=== PATIENT | female | born 1985 | race African-American/Black ===

== ENCOUNTER 2022-07-21 04:25 | Emergency (ER) | payer SELFPAY ==
[~2022-07-21] VITALS: Ht 167.6 cm; Wt 127.0 kg
--- NOTE | 2022-07-21 04:30 | NUR ---
DR: KIT AT B/S EXAMINED PATIENT .
--- NOTE | 2022-07-21 04:40 | NUR ---
DR:KIT AT B/S EXAMINED PATIENT AND EXPLAINED PLAN OF TX.
[2022-07-21] MEDS ORDERED: IPRATROPIUM BROMIDE 0.5 MG/2.5 ML NEBU ONE (04:56)
[2022-07-21] MEDS ORDERED: ALBUTEROL SULFATE 2.5 MG/3 ML NEBU ONE (04:56)
[2022-07-21] MEDS ORDERED: predniSONE 50 MG TABLET ONE (04:57)
[2022-07-21] MEDS ORDERED: predniSONE 10 MG TABLET ONE (04:57)
[2022-07-21] MEDS ORDERED: IPRATROPIUM BROMIDE 0.5 MG/2.5 ML NEBU NEB ONE (05:00)
[2022-07-21] MEDS ORDERED: ALBUTEROL SULFATE 2.5 MG/3 ML NEBU NEB ONE (05:00)
[2022-07-21] MEDS ORDERED: predniSONE 10 MG TABLET PO ONE (05:00)
[2022-07-21] MEDS ORDERED: ONDANSETRON ODT 4 MG TAB.RAPDIS SL ONE (05:15)
[2022-07-21] MEDS ORDERED: ALBU0.63 IH (05:22)
[2022-07-21] MEDS ORDERED: PRED20TA PO (05:22)
[2022-07-21] MEDS ORDERED: ALBU8.5H8 IH (05:22)
--- NOTE | 2022-07-21 05:30 | NUR ---
OTIS AT B/S DISCUSSED DISCHARGE INSTRUCTION .
[2022-07-21] MEDS ORDERED: ONDANSETRON ODT 4 MG TAB.RAPDIS ONE (05:33)
[2022-07-21 06:07] VITALS: BP 110/66
== END 2022-07-21 06:00 | disposition home or self-care (01) ==
LOC: ER 04:25
DX: J45.909 Unspecified asthma, uncomplicated (principal); Z20.822 Contact with and (suspected) exposure to COVID-19
CPT/HCPCS: 99283; 87426; 94640; J7512 ×2; A4663; J3590; Q0162

== ENCOUNTER 2024-04-11 00:29 | Inpatient (IN) | payer BC, OTHER ==
[2024-04-11] VITALS (25 sets, daily range): BP systolic 121–155; BP diastolic 74–104; TEMP 98.1–99.1; O2SAT 90–99
[~2024-04-11] VITALS: Ht 177.8 cm; Wt 131.5 kg
[~2024-04-11 00:29] MED LIST: ALBU0.63 IH; ALBU6.7H9 INH; ALBU8.5H8 IH; FLUT12AE5 INH; PRED20TA PO; PRED50TA PO; albuterol solution NEB
[2024-04-11] MEDS: IPRATROPIUM BROMIDE 0.5 MG/2.5 ML NEBU NEB ONE (01:02)
[2024-04-11] MEDS: ALBUTEROL SULFATE 2.5 MG/3 ML NEBU NEB ONE ×2 (01:02→03:54)
[2024-04-11] MEDS ORDERED: IPRATROPIUM BROMIDE 0.5 MG/2.5 ML NEBU ONE ×2 (01:05→01:46)
[2024-04-11] MEDS ORDERED: ALBUTEROL SULFATE 2.5 MG/3 ML NEBU ONE ×3 (01:05→04:01)
[2024-04-11] MEDS ORDERED: methylPREDNISolone SOD SUCC 125 MG/2 ML VIAL ONE (02:17)
[2024-04-11] MEDS: methylPREDNISolone SOD SUCC 125 MG/2 ML VIAL IV ONE (02:18)
[2024-04-11 02:27] LABS: BASOPHILS # (AUTO) 0.1 K/UL (0.0-0.2); BASOPHILS % (AUTO) 0.4 % (0.0-2.0); EOSINOPHILS % (AUTO) 0.1 % (0.0-7.0); HEMATOCRIT 34.8 % (31.2-41.9); HEMOGLOBIN 11.3 g/dL (10.9-14.3); LYMPHOCYTES # (AUTO) 0.5 K/uL (0.8-4.8); LYMPHOCYTES % (AUTO) 3.2 % (20.5-51.5); MEAN CORPUSCULAR HEMOGLOBIN 27.1 uug (24.7-32.8); MEAN CORPUSCULAR HGB CONC 33 g/dL (32.3-35.6); MEAN CORPUSCULAR VOLUME 83.5 fL (75.5-95.3); MONOCYTES # (AUTO) 0.6 K/uL (0.1-1.30); MONOCYTES % (AUTO) 3.2 % (0.0-11.0); NEUTROPHILS % (AUTO) 93.1 % (38.5-71.5); PLATELET COUNT (AUTO) 270 K/uL (179-408); RED BLOOD CELL COUNT(AUTO) 4.17 MIL/uL (3.63-4.92); RED CELL DISTRIBUTION WIDTH 15.9 % (12.3-17.7); WHITE BLOOD COUNT (AUTO) 17.2 K/uL (3.8-11.8)
[2024-04-11 02:33] LABS: DIFFERENTIAL COMMENT 1
[2024-04-11 02:42] LABS: CREATININE 0.9 mg/dL (0.6-1.3); POTASSIUM 3.9 mmol/L (3.5-5.1)
[2024-04-11 05:32] LABS: ABG BASE EXCESS -11.4 mmol/L (-2.0-3.0); ABG HCO3 11.3 mmol/L (21.0-28.0); ABG PH 7.392 (7.350-7.450); ABG PO2 74.9 mmHg (83.0-108.0); ABG SITE RIGHT RADIAL; ABG TOTAL HEMOGLOBIN 12.1 G/dL (12.0-16.0); AaDO2 95.4 mmHg; COHb 0.1 % (0.5-1.5); O2Hb 93.1 % (94.0-98.0)
[2024-04-11] MEDS ORDERED: MORPHINE SULFATE 2 MG/1 ML DISP.SYRIN IVP PRN (05:45)
[2024-04-11] MEDS ORDERED: ALBUTEROL SULFATE 8 GM HFA.AER.AD IH PRN (05:45)
[2024-04-11] MEDS ORDERED: ONDANSETRON 4 MG/2 ML VIAL IV PRN (05:45)
[2024-04-11] MEDS ORDERED: hydrALAZINE HCL 20 MG/1 ML VIAL IV PRN (05:45)
[2024-04-11] MEDS ORDERED: ACETAMINOPHEN 325 MG TABLET PO PRN (05:45)
[2024-04-11] MEDS ORDERED: CEFTRIAXONE /D5W 50ML IVPB **ER PYXIS IV ONE (07:15)
[2024-04-11] MEDS: CEFTRIAXONE 1 G in IV DEXTROSE 5% 50 ML IV ONE (07:26)
[2024-04-11] MEDS: IV NS 1000 ML 1,000 ML IV ONE (07:26)
[2024-04-11 08:56] LABS: BILIRUBIN,DIRECT 0.1 mg/dL (0.0-0.2); BILIRUBIN,TOTAL 0.3 mg/dL (0.2-1.0)
[2024-04-11] MEDS ORDERED: FLUTICASONE/VILANTEROL 1 EACH BLST.W.DEV INH SCH (09:00)
[2024-04-11] MEDS ORDERED: methylPREDNISolone SOD SUCC 40 MG/ML VIAL IV SCH (10:00)
[2024-04-11] MEDS: ALBUTEROL SULFATE 2.5 MG/3 ML NEBU NEB PRN (11:00)
[2024-04-11 11:38] LABS: C-REACTIVE PROTEIN 6.52 mg/dL (0.00-0.30)
[2024-04-11] MEDS: methylPREDNISolone SOD SUCC 40 MG/ML VIAL IV SCH (13:44)
[2024-04-11] MEDS: ENOXAPARIN SODIUM 40 MG/0.4 ML DISP.SYRIN SQ SCH (20:34)
[2024-04-12] VITALS (23 sets, daily range): BP systolic 105–149; BP diastolic 45–87; TEMP 98–98.9; O2SAT 93–99
[2024-04-12] MEDS: CEFTRIAXONE 1 G in IV DEXTROSE 5% 50 ML IV SCH (06:00)
[2024-04-12 07:15] LABS: HEMATOCRIT 32.3 % (31.2-41.9); HEMOGLOBIN 10.7 g/dL (10.9-14.3); LYMPHOCYTES # (AUTO) 0.9 K/uL (0.8-4.8); LYMPHOCYTES % (AUTO) 3.4 % (20.5-51.5); MEAN CORPUSCULAR HEMOGLOBIN 27.5 uug (24.7-32.8); MEAN CORPUSCULAR HGB CONC 33 g/dL (32.3-35.6); MEAN CORPUSCULAR VOLUME 83.4 fL (75.5-95.3); MONOCYTES # (AUTO) 0.9 K/uL (0.1-1.30); MONOCYTES % (AUTO) 3.6 % (0.0-11.0); NEUTROPHILS # (AUTO) 24.4 K/uL (1.8-8.9); PLATELET COUNT (AUTO) 277 K/uL (179-408); RED BLOOD CELL COUNT(AUTO) 3.87 MIL/uL (3.63-4.92); RED CELL DISTRIBUTION WIDTH 15.6 % (12.3-17.7); WHITE BLOOD COUNT (AUTO) 26.3 K/uL (3.8-11.8)
[2024-04-12 07:20] LABS: ALBUMIN 2.5 g/dL (3.4-5.0); BILIRUBIN,DIRECT 0.1 mg/dL (0.0-0.2); BILIRUBIN,TOTAL 0.3 mg/dL (0.2-1.0); CALCIUM 8.7 mg/dL (8.5-10.1); CREATININE 0.7 mg/dL (0.6-1.3); MAGNESIUM 2.2 mg/dL (1.8-2.4); PHOSPHOROUS 4.9 mg/dL (2.5-4.9); POTASSIUM 4.5 mmol/L (3.5-5.1); TOTAL PROTEIN, SERUM 7.3 g/dL (6.4-8.2)
[2024-04-12 07:23] LABS: DIFFERENTIAL COMMENT 1
[2024-04-12] MEDS: ALBUTEROL SULFATE 2.5 MG/3 ML NEBU NEB SCH (11:32)
[2024-04-13] VITALS (13 sets, daily range): BP systolic 127–139; BP diastolic 72–82; TEMP 97–98.8; O2SAT 93–98
[2024-04-14] VITALS (16 sets, daily range): BP systolic 124–143; BP diastolic 76–87; TEMP 97.4–98.1; O2SAT 92–99
[2024-04-14 07:03] LABS: BASOPHILS # (AUTO) 0.1 K/UL (0.0-0.2); BASOPHILS % (AUTO) 0.3 % (0.0-2.0); HEMATOCRIT 30.3 % (31.2-41.9); HEMOGLOBIN 10.1 g/dL (10.9-14.3); LYMPHOCYTES # (AUTO) 1.2 K/uL (0.8-4.8); LYMPHOCYTES % (AUTO) 6.9 % (20.5-51.5); MEAN CORPUSCULAR HEMOGLOBIN 27.9 uug (24.7-32.8); MEAN CORPUSCULAR HGB CONC 33 g/dL (32.3-35.6); MEAN CORPUSCULAR VOLUME 83.9 fL (75.5-95.3); MONOCYTES # (AUTO) 0.9 K/uL (0.1-1.30); MONOCYTES % (AUTO) 5.2 % (0.0-11.0); NEUTROPHILS # (AUTO) 15.4 K/uL (1.8-8.9); NEUTROPHILS % (AUTO) 87.6 % (38.5-71.5); PLATELET COUNT (AUTO) 281 K/uL (179-408); RED BLOOD CELL COUNT(AUTO) 3.62 MIL/uL (3.63-4.92); RED CELL DISTRIBUTION WIDTH 15.8 % (12.3-17.7); WHITE BLOOD COUNT (AUTO) 17.6 K/uL (3.8-11.8)
[2024-04-14 07:11] LABS: DIFFERENTIAL COMMENT 1
[2024-04-14 07:14] LABS: CALCIUM 8.7 mg/dL (8.5-10.1); CREATININE 0.7 mg/dL (0.6-1.3); MAGNESIUM 1.8 mg/dL (1.8-2.4)
[2024-04-15] VITALS (12 sets, daily range): BP systolic 130–142; BP diastolic 73–85; TEMP 97.8–98.9; O2SAT 93–98
[2024-04-15 07:20] LABS: BASOPHILS % (AUTO) 0.1 % (0.0-2.0); HEMATOCRIT 31.9 % (31.2-41.9); HEMOGLOBIN 10.4 g/dL (10.9-14.3); LYMPHOCYTES # (AUTO) 1.9 K/uL (0.8-4.8); LYMPHOCYTES % (AUTO) 12.6 % (20.5-51.5); MEAN CORPUSCULAR HEMOGLOBIN 27.3 uug (24.7-32.8); MEAN CORPUSCULAR HGB CONC 33 g/dL (32.3-35.6); MEAN CORPUSCULAR VOLUME 83.7 fL (75.5-95.3); MONOCYTES # (AUTO) 0.8 K/uL (0.1-1.30); MONOCYTES % (AUTO) 5.5 % (0.0-11.0); NEUTROPHILS # (AUTO) 12.2 K/uL (1.8-8.9); NEUTROPHILS % (AUTO) 81.8 % (38.5-71.5); PLATELET COUNT (AUTO) 324 K/uL (179-408); RED BLOOD CELL COUNT(AUTO) 3.81 MIL/uL (3.63-4.92); RED CELL DISTRIBUTION WIDTH 15.6 % (12.3-17.7); WHITE BLOOD COUNT (AUTO) 14.9 K/uL (3.8-11.8)
[2024-04-15 07:26] LABS: DIFFERENTIAL COMMENT 1
[2024-04-15 07:41] LABS: CALCIUM 8.6 mg/dL (8.5-10.1); CREATININE 0.7 mg/dL (0.6-1.3); MAGNESIUM 1.8 mg/dL (1.8-2.4); PHOSPHOROUS 4.6 mg/dL (2.5-4.9); POTASSIUM 4.1 mmol/L (3.5-5.1)
[2024-04-15] MEDS ORDERED: METH4TAB3 PO (15:04)
[2024-04-15] MEDS ORDERED: CEPH500C2 PO (15:04)
[2024-04-15] MEDS: predniSONE 20 MG TABLET PO SCH (17:33)
== END 2024-04-15 18:00 | disposition home or self-care (01) | DRG 831 ==
LOC: ER 00:42 → TELE3 05:28
PROVIDERS: ADMIT Internal Medicine; ATTEND Student in an Organized Health Care Education/Training Program
DX: O99.512 Diseases of the respiratory system complicating pregnancy, second trimester (principal); J12.9 Viral pneumonia, unspecified; O98.512 Other viral diseases complicating pregnancy, second trimester; J96.01 Acute respiratory failure with hypoxia; J45.902 Unspecified asthma with status asthmaticus; E87.20 Acidosis, unspecified; E44.0 Moderate protein-calorie malnutrition; O09.512 Supervision of elderly primigravida, second trimester; Z3A.20 20 weeks gestation of pregnancy; B33.8 Other specified viral diseases; O99.212 Obesity complicating pregnancy, second trimester; E66.01 Morbid (severe) obesity due to excess calories; O25.12 Malnutrition in pregnancy, second trimester; Z86.16 Personal history of COVID-19; Z79.51 Long term (current) use of inhaled steroids
CPT/HCPCS: 36415; 36600; 70030-TC; 71045; 83605; 83735; 84100; 85025; 86140; 87040; 94640; 94760; A4606; A4663; G0378; J0696; J1650; J2919; J3590; J7040; J7512